=== PATIENT | female | born 1960 | race Asian ===

== ENCOUNTER 2016-05-10 13:05 | Emergency (ER) | payer OTHER ==
[~2016-05-10] VITALS: Ht 167.6 cm; Wt 72.6 kg
--- NOTE | 2016-05-10 13:40 | ED General ---
General Chief Complaint: Allergic Reaction Stated Complaint: ALLERGIC REACTION Nursing Triage Note: PT ARRIVED PER EMS, PT WAS AT [facility] PT HAVING ALLERGIC RX, MOUTH SWELLING, SOA, DIFF SWALLOWING, RASH AND ITCHING ON HAND AND FEET. PT HAS SL AND WAS GIVEN IV SOLUMEDROL,BENEDRYL AND EPPI BY JUAN ANTONIO DILLON. Nursing Sepsis Screen: No Definite Risk History of Present Illness Time Seen by Provider: 13:20 Initial Comments Evaluation for rash to palms of hands and plantar surface of feet. She noticed difficulty swallowing and swelling in her lips, he went to [facility]. She was given Solu-Medrol IV Benadryl IV and an EpiPen then transferred here via EMS. She reports her symptoms have improved. She denies difficulty breathing. She denies a causative agent that she can identify, the allergy is penicillin. No environmental or other known allergies Timing/Duration: 1-3 Hours Severity: Mild, Moderate Allergies and Home Medications Allergies Coded Allergies: Penicillins (Unverified Allergy, Unknown, 05/10/16) Home Medications Azithromycin 500 Mg Tablet #5 500 MG PO DAILY Prescribed by: JENNIFER GARNER on 05/10/16 1641 Constitutional: no symptoms reported see HPI EENTM: mouth swelling see HPI throat swelling Respiratory: no symptoms reported see HPI Cardiovascular: no symptoms reported see HPI Gastrointestinal: no symptoms reported see HPI Genitourinary: no symptoms reported see HPI : No Musculoskeletal: no symptoms reported see HPI Skin: see HPI rash (hands and feet) Psychiatric/Neurological: No Symptoms Reported See HPI Hematologic/Lymphatic: No Symptoms Reported See HPI Immunological/Allergic: no symptoms reported see HPI All Other Systems Reviewed Negative Unless Noted: Yes Past Mfbbjbv-Scarbb-Mxdbaj Hx Patient Social History Alcohol Use: Denies Use Recreational Drug Use: No Smoking Status: Never a Smoker Recent Foreign Travel: No Contact w/Someone Who Travel: No Recent Infectious Disease Expo: No Reviewed Nursing Assessment Reviewed/Agree w Nursing PMH: Yes Physical Exam Vital Signs Vital Sign - Last 12Hours 05/10/16 13:05 Temp 98.2 Pulse 111 Resp 38 B/P 134/77 Pulse Ox 96 O2 Delivery Room Air Capillary Refill : Less Than 3 Seconds General Appearance: No Apparent Distress WD/WN Eyes: Bilateral Eye Normal Inspection, Bilateral Eye Other (no Alyssa-Orbital edema), Bilateral Eye PERRL HEENT: PERRL/EOMI TMs Normal Normal ENT Inspection Pharyngeal Erythema Other ( trace angioedema) Neck: Full Range of Motion Normal Inspection Non Tender SuppleNo Lymphadenopathy (L), No Lymphadenopathy (R) Respiratory: Chest Non Tender Lungs Clear Normal Breath Sounds Cardiovascular: Regular Rate, Rhythm No Edema No Murmur Normal Peripheral Pulses Gastrointestinal: Normal Bowel Sounds Non Tender Soft Back: Normal Inspection No CVA Tenderness No Vertebral Tenderness Extremity: Normal Capillary Refill Normal Inspection Normal Range of Motion Non Tender No Calf Tenderness No Pedal Edema Neurologic/Psychiatric: Alert Oriented x3 No Motor/Sensory Deficits Normal Mood/Affect Skin: Normal Color Petechia (rash to the lower surface of hands and plantar surface of feet, mild in nature) Lymphatic: No Adenopathy Progress/Results/Core Measures Results/Orders Lab Results Laboratory Tests Test 05/10/16 15:30 Range/Units Group A Streptococcus Screen NEGATIVE NEGATIVE My Orders Orders-JENNIFER GARNER Famotidine Tablet (Pepcid Tablet) (05/10/16 13:45) Rapid Strep A Screen (05/10/16 15:01) Chest Pa/Lat (2 View) (05/10/16 15:02) Ketorolac Injection (Toradol Injection) (05/10/16 16:11) Medications Given in ED Current Medications Medications Dose Ordered Sig/Piotr Route Start Time Stop Time Status Last Admin Dose Admin Famotidine 20 mg ONCE ONCE PO 05/10/16 13:45 05/10/16 13:46 DC 05/10/16 13:30 20 MG Vital Signs/I&O Vital Sign - Last 12Hours 05/10/16 05/10/16 13:05 16:46 Temp 98.2 Pulse 111 100 Resp 38 18 B/P 134/77 Pulse Ox 96 97 O2 Delivery Room Air Blood Pressure Mean: 96 Progress Note : Time: 13:20 Progress Note Initial evaluation completed, no acute anaphylaxis at this time. Explained to the patient and her spouse that she will need to remain here for 4 hours after the EpiPen was given. Pepcid 20 mg by mouth. 1400 patient offered ice chips, no difficulty swallowing. Complaining of throat pain but no difficulty breathing. No change in rash. 1500 strep a negative, chest x-ray normal. Taking by mouth fluids 1600 patient complaining of increased throat pain, Toradol 30 mg IV. 1615 patient reports improvement in her symptoms, discharge planning discussed. Patient and her spouse verbalized understanding. Diagnostic Imaging Diagonstic Imaging: Xray Plain Films/CT/US/NM/MRI: chest Comments NAME: PETE KC MED REC#: [id number] PT STATUS: REG ER : 1960 PHYSICIAN: JENNIFER GARNER ADMIT DATE: 05/10/16/ER Draft Date of Exam:05/10/16 CHEST PA/LAT (2 VIEW) PA and lateral chest at 3:42 p.m. INDICATION: Shortness of breath. No prior studies available for comparison. FINDINGS: The heart size is within normal limits. The lungs are clear. There is no evidence for failure, pneumonia or for pleural effusion. Mediastinum is not widened. The osseous structures are intact. IMPRESSION: There is no evidence for acute cardiopulmonary abnormality. Dictated on workstation # [id number] Dict: 05/10/16 1531 Trans: 05/10/16 1538 [id number] Interpreted by: REUBEN CHAVARRIA MD Electronically signed by: Reviewed: Reviewed by Me Departure Impression Impression: Primary Impression: Allergic reaction Qualified Code: T78.40XA - Allergy, unspecified, initial encounter Additional Impression: Pharyngitis Qualified Code: J02.9 - Acute pharyngitis, unspecified Disposition: 01 HOME, SELF-CARE Condition: Stable Departure-Patient Inst. Decision time for Depature: 15:00 Referrals: [facility] (PCP/Family) Primary Care Physician Patient Instructions: Anaphylaxis (DC), Strep Throat (DC) Add. Discharge Instructions: All discharge instructions reviewed with patient and/or family. Voiced understanding. Continue to take Benadryl 25 mg orally every 8 hours. Return to emergency room for difficulty breathing, increased rash, itching, swelling of lips, eyes or tongue, or any other concerns Scripts Azithromycin 500 Mg [id number] Mg PO DAILY #5 TAB Ref 0 Prov:JENNIFER GARNER 05/10/16 JENNIFER GARNER May 10, 2016 13:40
[2016-05-10] MEDS ORDERED: FAMOTIDINE 20 MG (PEPCID) TABLET PO ONE (13:45)
--- NOTE | 2016-05-10 15:38 | Diagnostic Imaging Report ---
PA and lateral chest at 3:42 p.m. INDICATION: Shortness of breath. No prior studies available for comparison. FINDINGS: The heart size is within normal limits. The lungs are clear. There is no evidence for failure, pneumonia or for pleural effusion. Mediastinum is not widened. The osseous structures are intact. IMPRESSION: There is no evidence for an acute cardiopulmonary abnormality. Dictated by: Dictated on workstation # [id number]
[2016-05-10] MEDS ORDERED: KETOROLAC 30 MG/ML VIAL IVP STA (16:11)
[2016-05-10] MEDS ORDERED: AZIT500T5 PO (16:41)
[2016-05-10 16:46] VITALS: BP 131/84
[2016-05-11] MEDS ORDERED: AZIT500T5 PO (13:38)
[2016-05-11] MEDS ORDERED: DIPH25TA65 PO (13:38)
[2016-05-11] MEDS ORDERED: D ME PO (13:46)
[2016-05-13] MEDS ORDERED: DIPH28CR5 TOP (11:06)
[2016-05-13] MEDS ORDERED: LIDO15SO2 PO (11:06)
== END 2016-05-10 16:49 | disposition home or self-care (01) ==
LOC: ER 13:13
DX: J02.9 Acute pharyngitis, unspecified (principal); R21 Rash and other nonspecific skin eruption; T78.40XA Allergy, unspecified, initial encounter; Y92.009 Unspecified place in unspecified non-institutional (private) residence as the place of occurrence of the external cause
CPT/HCPCS: 71020; 87430; 96374

== ENCOUNTER 2016-05-11 07:58 | Inpatient (IN) | payer OTHER ==
[~2016-05-11] VITALS: Ht 165.1 cm; Wt 74.5 kg
[~2016-05-11 07:58] MED LIST: AZIT500T5 PO
--- OUTSIDE RECORDS SUMMARY | 2016-05-11 08:02 | XMS REPORT | Continuity of Care Document ---
Author Author [facility] Organization [facility] Address Unknown Phone Unavailable Care Team Providers Care Grinding Supervisor Name Role Phone [facility] Insurance Providers Payer Name Policy Number Subscriber Name Relationship Unknown Advance Directives Directive Response Recorded Date/Time Advance Directives No 05/10/16 1:05pm Resuscitation Status Full Code 05/10/16 1:05pm Chief Complaint and Reason for Visit Chief Complaint Allergic Reaction Reason for Visit Allergic reaction Pharyngitis Problems Active Problems Medical Problem Onset Date Status Allergic reaction Unknown Acute Pharyngitis Unknown Acute Medications Current Home Medications Medication Dose Units Route Directions Days/Qty Instructions Start Date Azithromycin 500 Mg 500 Mg Oral Daily 5 05/10/16 Social History Social History Problem Response Recorded Date/Time Alcohol Use Denies Use 05/10/2016 1:05pm Recreational Drug Use No 05/10/2016 1:05pm Recent Foreign Travel No 05/10/2016 1:05pm Recent Infectious Disease Exposure No 05/10/2016 1:05pm Hospitalization with Isolation Denies 05/10/2016 1:05pm Smoking Status Never a Smoker 05/10/2016 1:05pm Hospitalization with Isolation Denies 05/10/2016 1:05pm Query Response Start Date Stop Date Smoking Status Never a Smoker Hospital Discharge Instructions No hospital discharge instructions. Plan of Care Discharge Date 05/10/16 4:49pm Disposition 01 HOME, SELF-CARE Condition at Discharge Stable Instructions/Education Provided Anaphylaxis (DC) Strep Throat (DC) Prescriptions See Medication Section Referrals [facility] - Primary Care Physician Additional Instructions/Education All discharge instructions reviewed with patient and/or family. Voiced understanding. Continue to take Benadryl 25 mg orally every 8 hours. Return to emergency room for difficulty breathing, increased rash, itching, swelling of lips, eyes or tongue, or any other concerns Functional Status No functional status results. Allergies, Adverse Reactions, Alerts Allergen Type Severity Reaction Status Last Updated Penicillins ([id number]) Allergy Unknown Active 05/10/16 Immunizations No immunization records. Vital Signs Acute Vital Signs Vital Response Date/Time Temperature (Fahrenheit) 98.2 degrees F (97.6 - 99.5) 05/10/2016 1:05pm Temperature (Calculated Celsius) 36.94617 degrees C (36.4 - 37.5) 05/10/2016 1:05pm Temperature Source Temporal 05/10/2016 1:05pm Pulse Rate (adult) 100 bpm (60 - 90) 05/10/2016 4:46pm Respiratory Rate 18 bpm (12 - 24) 05/10/2016 4:46pm O2 Sat by Pulse Oximetry 97 % (88 - 100) 05/10/2016 4:46pm Blood Pressure 131/84 mm Hg 05/10/2016 4:46pm Blood Pressure Mean 96 mm Hg 05/10/2016 1:05pm Pain Numeric Pain Scale 0-No Pain 05/10/2016 1:05pm Height (Feet) 5 feet 05/10/2016 1:05pm Height (Inches) 6 inches 05/10/2016 1:05pm Height (Calculated Centimeters) 167.964359 cm 05/10/2016 1:05pm Weight (Pounds) 160 pounds 05/10/2016 1:05pm Weight (Calculated Kilograms) 72.072989 kilograms 05/10/2016 1:05pm Capillary Refill Capillary Refill Less Than 3 Seconds 05/10/2016 1:05pm Height 5 ft 6 in Weight 160 lb Body Mass Index 25.8 kg/m^2 Results Laboratory Results Test Name Result Units Flags Reference Collection Date/Time Result Date/ Time Comments Group A Streptococcus Screen NEGATIVE NEGATIVE 05/10/2016 3:30pm 04/2016 4:07pm Procedures No known history of procedures. Encounters Encounter Location Arrival/Admit Date Discharge/Depart Date Attending Provider Departed Emergency Room [facility] 05/10/16 1:13pm 05/10 4:49pm JENNIFER GARNRE Recent Diagnosis
[2016-05-11] MEDS ORDERED: NS IV 1000 ML 1,000 ML IV PRN (08:30)
[2016-05-11] MEDS ORDERED: fentaNYL INJECTION 100 MCG/2 ML AMP IVP PRN (08:30)
[2016-05-11 08:35] LABS: BASOPHILS # (AUTO) 0.1 10^3/uL (0.0-0.1); BASOPHILS % (AUTO) 0 % (0-10); EOSINOPHILS # (AUTO) 0.1 10^3/uL (0.0-0.3); EOSINOPHILS % (AUTO) 1 % (0-10); LYMPHOCYTES % (AUTO) 25 % (12-44); MEAN CORPUSCULAR HEMOGLOBIN 29 PG (25-34); MEAN CORPUSCULAR HGB CONC 34 G/DL (32-36); MEAN CORPUSCULAR VOLUME 85 FL (80-99); MEAN PLATELET VOLUME 10.1 FL (7.4-10.4); MONOCYTES # (AUTO) 1.4 X 10^3 (0.0-1.0); MONOCYTES % (AUTO) 7 % (0-12); NEUTROPHILS # (AUTO) 13.1 X 10^3 (1.8-7.8); NEUTROPHILS % (AUTO) 67 % (42-75); PLATELET COUNT 264 10^3/uL (130-400); RED BLOOD COUNT 5.47 10^6/uL (4.35-5.85); RED CELL DISTRIBUTION WIDTH 14.5 % (10.0-14.5); WHITE BLOOD COUNT 19.7 10^3/uL (4.3-11.0)
--- NOTE | 2016-05-11 08:37 | ED EENT ---
History of Present Illness General Stated Complaint: ALLERGIC REACTION Source: patient, family Exam Limitations: no limitations History of Present Illness Time seen by provider: 08:32 Initial Comments This 56-year-old white female presents with a 2 day history of severe sore throat, difficulty swallowing, and itching rash over the palms of both hands. Patient was seen at [facility] treated with epinephrine and Solu-Medrol and transferred to the emergency department where a diagnosis of pharyngitis was made and the patient was started on Benadryl on a Zithromax in. Over the last 24 hours there has been no improvement precipitating the patient's repeat presentation to the emergency department. Patient states that it is very painful to swallow and that she has sensation of swelling in her throat. The patient denies associated headache, stiff neck, respiratory distress, nausea, vomiting, diarrhea. The patient [place] this country within the last year. Due to the language difficulty and the patient's condition is somewhat difficult to establish that her immunizations are up-to-date. Allergies and Home Medications Allergies Coded Allergies: Penicillins (Unverified Allergy, Unknown, 05/10/16) Home Medications Azithromycin 500 Mg Tablet #5 500 MG PO DAILY Prescribed by: JENNIFER GARNER on 05/10/16 1641 Review of Systems Constitutional: chills fever Eyes: Denies Blurred Vision Ears: Denies Dizziness Nose: denies congestion, denies epistaxis Mouth: see HPI pain swelling Throat: see HPI pain swellingdenies neck stiffness Respiratory: coughNo short of breath Cardiovascular: No chest pain Gastrointestinal: No abdominal pain, No diarrhea, No nausea, No vomiting Musculoskeletal: No back pain Skin: rash (there is a macular papular diffuse rash over the palms of both hands measuring approximately 1/4-1/2 cm in diameter. The rash is itchy.) Neurological: No Symptoms Reported Hematologic/Lymphatic: No Symptoms Reported Immunological/Allergic: no symptoms reported Past Ofyuvgx-Utscrh-Unwhrc Hx Reviewed Nursing Assessment Reviewed/Agree w Nursing PMH: Yes Physical Exam Vital Signs Vital Sign - Last 12Hours 05/11/16 08:00 Temp 100.0 Pulse 103 Resp 20 B/P 135/103 Pulse Ox 97 O2 Delivery Room Air General Appearance: WD/WN mild distress Eyes: bilateral eye PERRL, bilateral eye normal inspection Ears: bilateral ear TM normal, bilateral ear auricle normal, bilateral ear canal normal Nose: normal inspection Mouth/Throat: pharynx swelling (there is uvular edema and an apparent viral stomatitis of the posterior oral pharynx.) other (there appears to be a fullness in the floor of the mouth on palpation. There is tenderness without apparent inflammation to the skin. There is moderate associated anterior cervical adenopathy.) Neck: non-tender supple Cardiovascular: normal peripheral pulses regular rate, rhythm Respiratory: chest non-tender lungs clear normal breath sounds Gastrointestinal: normal bowel sounds non tender soft Neurologic/Psychiatric: no motor/sensory deficits alert normal mood/affect oriented x 3 Skin: rash (the rash over the palms is as noted above.) Progress/Results/Core Measures Results/Orders Lab Results Laboratory Tests Test 05/11/16 08:20 05/11/16 08:29 05/11/16 08:38 05/11/16 09:59 Range/Units Monoscreen NEGATIVE NEGATIVE Activated Partial Thromboplast Time 26 24-35 SEC Alanine Aminotransferase (ALT/SGPT) 20 0-55 U/L Albumin 4.6 H 3.2-4.5 G/DL Alkaline Phosphatase 95 40-136 U/L Anion Gap 12 5-14 MMOL/L Aspartate Amino Transf (AST/SGOT) 13 5-34 U/L BUN/Creatinine Ratio 17 Band Neutrophils 0 % Basophils # (Auto) 0.1 0.0-0.1 10^3/uL Basophils % (Manual) 0 % Basophils (%) (Auto) 0 0-10 % Blood Morphology Comment NORMAL Blood Urea Nitrogen 13 7-18 MG/DL Calcium Level 9.7 8.5-10.1 MG/DL Carbon Dioxide Level 23 21-32 MMOL/L Chloride Level 107 98-107 MMOL/L Creatinine 0.76 0.60-1.30 MG/DL Eosinophils # (Auto) 0.1 0.0-0.3 10^3/uL Eosinophils % (Manual) 0 % Eosinophils (%) (Auto) 1 0-10 % Estimat Glomerular Filtration Rate > 60 Glucose Level 123 H 70-105 MG/DL Hematocrit 46 35-52 % Hemoglobin 15.6 11.5-16.0 G/DL INR Comment 1.0 0.8-1.4 Lymphocytes # (Auto) 5.0 H 1.0-4.0 X 10^3 Lymphocytes % (Manual) 30 % Lymphocytes (%) (Auto) 25 12-44 % Mean Corpuscular Hemoglobin 29 25-34 PG Mean Corpuscular Hemoglobin Concent 34 32-36 G/DL Mean Corpuscular Volume 85 80-99 FL Mean Platelet Volume 10.1 7.4-10.4 FL Monocytes # (Auto) 1.4 H 0.0-1.0 X 10^3 Monocytes % (Manual) 4 % Monocytes (%) (Auto) 7 0-12 % Neutrophils # (Auto) 13.1 H 1.8-7.8 X 10^3 Neutrophils % (Manual) 66 % Neutrophils (%) (Auto) 67 42-75 % Platelet Count 264 130-400 10^3/uL Potassium Level 3.9 3.6-5.0 MMOL/L Prothrombin Time 12.5 12.2-14.7 SEC Red Blood Count 5.47 4.35-5.85 10^6/uL Red Cell Distribution Width 14.5 10.0-14.5 % Sodium Level 142 135-145 MMOL/L Total Bilirubin 0.3 0.1-1.0 MG/DL Total Protein 7.5 6.4-8.2 G/DL White Blood Count 19.7 H 4.3-11.0 10^3/uL Lactic Acid Level 1.0 0.5-2.0 MMOL/L My Orders Orders-DALI PINTO MD Cbc With Automated Diff (05/11/16 08:28) Comprehensive Metabolic Panel (05/11/16 08:28) Lactic Acid Analyzer (05/11/16 08:28) Blood Culture (05/11/16 08:28) Sputum Culture (05/11/16 08:28) Ua Culture If Indicated (05/11/16 08:28) Protime With Inr (05/11/16 08:28) Partial Thromboplastin Time (05/11/16 08:28) Chest 1 View, Ap/Pa Only (05/11/16 08:28) O2 (05/11/16 08:28) Saline Lock/Iv-Start (05/11/16 08:28) Saline Lock/Iv-Start (05/11/16 08:28) Ns Iv 1000 Ml (Sodium Chloride 0.9%) (05/11/16 08:30) Vital Signs Adult Sepsis Patie Q1HR (05/11/16 08:28) Remove Rings In Anticipation O (05/11/16 08:28) Fentanyl Injection (Sublimaze Injection (05/11/16 08:30) Manual Differential (05/11/16 08:29) Ct Neck (Soft Tissue) W (05/11/16 08:38) Iohexol Injection (Omnipaque 350 Mg/Ml 1 (05/11/16 09:00) Sodium Chloride Flush (Catheter Flush Sy (05/11/16 09:00) Ns (Ivpb) (Sodium Chloride 0.9% Ivpb Bag (05/11/16 09:00) Monotest (05/11/16 09:04) Throat Culture (05/11/16 09:19) Virus Culture (05/11/16 09:27) Ceftriaxone Injection (Rocephin Injectio (05/11/16 10:00) Medications Given in ED Current Medications Medications Dose Ordered Sig/Piotr Route Start Time Stop Time Status Last Admin Dose Admin Ceftriaxone Sodium/Sodium Chloride 50 ml @ 100 mls/hr ONCE ONCE IV 05/11/16 10:00 05/11/16 10:29 05/11/16 10:06 100 MLS/HR Fentanyl Citrate 50 mcg Q1H PRN IVP 05/11/16 08:30 05/11/16 08:39 50 MCG Iohexol 75 ml ONCE ONCE IV 05/11/16 09:00 05/11/16 09:05 DC 05/11/16 09:17 75 ML Sodium Chloride 1,000 ml @ 500 mls/hr PRN PRN IV 05/11/16 08:30 05/11/16 08:39 500 MLS/HR Sodium Chloride 100 ml 100 ml ONCE ONCE IV 05/11/16 09:00 05/11/16 09:05 DC 05/11/16 09:17 80 ML Vital Signs/I&O Vital Sign - Last 12Hours 05/11/16 08:00 Temp 100.0 Pulse 103 Resp 20 B/P 135/103 Pulse Ox 97 O2 Delivery Room Air Progress Note : Time: 09:56 Progress Note Patient's laboratory evaluation showed white count of nearly 20,000. The CT with contrast of the neck demonstrated possible early abscesses in the abril- adenoidal area as well as significant frontal and ethmoid sinusitis. I'm going to give the patient 2 g of Rocephin carefully (penicillin allergy). I placed a call to Dr. Orantes for her thoughts on the patient. I anticipate that we will admit the patient on IV antibiotics for further close evaluation. Dr. Orantes was kind enough to admit the patient. A consult was placed to Dr. Hurley, ENT. Departure Communication Time/Spoke to Admitting Phy: 10:[address] Orantes Time/Spoke to Consulting Physi: 10:12 Communication/Consulting Call was placed to Dr. Hurley. Impression Impression: Primary Impression: Sinusitis Disposition: ADMITTED INPATIENT Condition: Improved Decision to Admit Reason: Admit from ER (General) Decision to Admit/Date: May 11, 2016 Time/Decision to Admit Time: 10:13 Departure-Patient Inst. Referrals: [facility] (PCP/Family) Primary Care Physician DALI PINTO MD May 11, 2016 08:37
[2016-05-11 08:39] LABS: PROTHROMBIN TIME PATIENT 12.5 SEC (12.2-14.7)
[2016-05-11 08:47] LABS: ALANINE AMINOTRANSFERASE 20 U/L (0-55); ALBUMIN 4.6 G/DL (3.2-4.5); ANION GAP 12 MMOL/L (5-14); ASPARTATE AMINO TRANSFERASE 13 U/L (5-34); BILIRUBIN,TOTAL 0.3 MG/DL (0.1-1.0); BLOOD UREA NITROGEN 13 MG/DL (7-18); BUN/CREATININE RATIO 17; CALCIUM 9.7 MG/DL (8.5-10.1); CARBON DIOXIDE 23 MMOL/L (21-32); CHLORIDE 107 MMOL/L (98-107); CREATININE SERUM 0.76 MG/DL (0.60-1.30); GFR ESTIMATED > 60; GLUCOSE 123 MG/DL (70-105); POTASSIUM 3.9 MMOL/L (3.6-5.0); SODIUM 142 MMOL/L (135-145); TOTAL PROTEIN 7.5 G/DL (6.4-8.2)
[2016-05-11 08:57] LABS: BAND NEUTROPHILS 0 %; BASOPHILS % (MANUAL) 0 %; EOSINOPHILS % (MANUAL) 0 %; LYMPHOCYTES % (MANUAL) 30 %; NEUTROPHILS % (MANUAL) 66 %
[2016-05-11] MEDS ORDERED: CATHETER FLUSH 10 ML SYR IV PRN ×2 (09:00→12:00)
[2016-05-11] MEDS ORDERED: NS 100 ML (IVPB) BAG IV ONE (09:00)
[2016-05-11] MEDS ORDERED: IOHEXOL 350 MG/ML 100 ML (OMNIPAQUE 350) VIAL IV ONE (09:00)
--- NOTE | 2016-05-11 09:05 | Diagnostic Imaging Report ---
INDICATION: Throat and tongue swelling. PA chest obtained at 8:53 a.m. and compared to 04/13/16. FINDINGS: Heart and mediastinal silhouette are normal in appearance. The lungs are clear. There is no pneumothorax or pleural fluid. IMPRESSION: Negative chest. Dictated by: Dictated on workstation # [id number]
[2016-05-11] MEDS ORDERED: cefTRIAXone INJECTION 2,000 MG in NS (IVPB) 50 ML IV ONE (10:00)
[2016-05-11 10:08] LABS: BILIRUBIN,URINE NEGATIVE (NEGATIVE); KETONES,URINE NEGATIVE (NEGATIVE); LEUKOCYTE ESTERASE ,URINE 1+ (NEGATIVE); NITRITE,URINE NEGATIVE (NEGATIVE); PH,URINE 5 (5-9); PROTEIN,URINE NEGATIVE (NEGATIVE); UROBILINOGEN,URINE NORMAL (NORMAL)
--- NOTE | 2016-05-11 10:15 | Diagnostic Imaging Report ---
PROCEDURE: CT neck soft tissue with contrast. TECHNIQUE: Multiple contiguous axial images were obtained through the neck after the administration of contrast. INDICATION: Fever. Throat swelling. 75 mL of Omnipaque 350 was administered intravenously. FINDINGS: There is an opacification of the frontal sinuses visualized portions and prominent partial opacification of the ethmoidal air cells bilaterally. Incidental subcentimeter osteomas are seen in the mid ethmoidal air cells bilaterally. The maxillary sinuses demonstrate mild mucosal thickening. There is also mucosal thickening in the nasal cavities and middle and superior turbinates obliterating the upper aspect of the nasal channels on both sides. There is also obliteration of the ostiomeatal complex bilaterally. In the nasopharynx, there is heterogenous swelling of the tiny pockets of hypodensity which may relate to a phlegmon. No sizable fluid collection is seen at this time to suggest a drainable abscess. There is swelling of the uvula with no fluid collection seen. The thyroid, the submandibular glands and the parotid glands appear unremarkable. The lung apices appear clear. The osseous structures appear grossly unremarkable. IMPRESSION: There is soft tissue swelling in the uvula and the adenoids with very tiny hypodense areas in the adenoids which may relate to phlegmon or early microabscess formation. No sizable fluid collection to suggest a drainable abscess seen at this time. There is also sinonasal mucosal thickening, as described, compatible with sinusitis. Dictated by: Dictated on workstation # [id number]
[2016-05-11] MEDS ORDERED: CEFUROXIME INJECTION 1,500 MG in NS (IVPB) 50 ML IV ONE (10:30)
[2016-05-11] MEDS ORDERED: methylPREDNISolone 125 MG (Solu-MEDROL) VIAL IVP ONE (10:30)
[2016-05-11] MEDS ORDERED: HYDROmorphone (DILAUDID) 2 MG/ML VIAL IVP ONE (11:00)
[2016-05-11 11:35] VITALS: BP 156/77
[2016-05-11] MEDS: NS IV 1000 ML 1,000 ML IV SCH (12:10)
[2016-05-11 13:30] VITALS: BP 165/96
[2016-05-11] MEDS ORDERED: AZIT500T5 PO (13:38)
[2016-05-11] MEDS ORDERED: DIPH25TA65 PO (13:38)
[2016-05-11] MEDS ORDERED: D ME PO (13:46)
--- NOTE | 2016-05-11 15:50 | ST Dysphagia Evaluation ---
Speech Evaluation-General Medical Diagnosis Questionable Abril-adenoidal Abscess, Pharyngitis, Sinitus Onset Date: May 09, 2016 Therapy Diagnosis Therapy Diagnosis: Moderate Odynophagia Precautions Precautions: Aspiration Precautions/Isolations: Standard Precautions Referral Referring Physician: Dr. Alexandra Orantes Reason for Referral: Evaluation/Treatment Clinical Bedside Swallowing Evaluation Medical History The patient's past medical history could not be found following a chart review. Limited history was provided by family members upon clinician interview. Reviewed History: Yes Speech PLF/Current-Dysphagia Prior Level of Function Prior to the onset of pharyngeal pain two days ago, the patient consumed a regular diet with thin liquids. Since the onset of the pharyngitis, the patient stated, "I have barely ate anything." Subjective The patient was recently admitted to [facility] with a diagnosis of a questionable abril-adenoidal abscess, pharyngitis, and sinuitis. The patient reports significant odynophagia upon swallowing saliva, thin liquid, and mucus. The patient is agreeable to participate in the dysphagia evaluation at this time. CT Neck: 05/11/16: There is soft tissue swelling in the uvula and the adenoids with very tiny hypodense areas in the adenoids which may relate to phlegmon or early microabscess formation. No sizable fluid collection to suggest a drainable abscess seen at this time. There is also sinonasal mucosal thickening, as described,compatible with sinusitis. Cognitive Status Patient Orientation: Person, Place Oral Motor Skills Dentition: Natural Current Food Consistancy: Regular, Thin Liquids Ability to Follow Directions: Good Oral Expression Ability: No Impairment Mild, intermittent language barrier present; family members present for evaluation. Voice Voice Pitch: Mildly Low Voice Loudness: Moderately Soft/Quiet (Hyponasality noted.) Face Facial Symmetry: Symmetrical Oral-Facial Assessment Oral-Facial Dentition: Normal Labial Seal Description: Normal Smile: Normal Puff Cheeks: Normal Lingual Protrusion: Normal Lingual ROM: Normal Lingual Strength: Normal Pharynx Velopharyngeal Move.: Normal (Posterior pharyngeal wall edema was noted.) Volitional Dry Swallow: Yes (Significant odynophagia noted upon a dry swallow.) Voluntary Cough: Yes Can Clear Throat Volitionally: Yes Dysphagia Evaluation Consistencies Presented: Thin Liquid, Pureed Solid consistencies were deferred secondary to discomfort. 1. No oral impairments were noted throughout the evaluation. The patient did report discomfort near the posterior oral cavity upon swallowing. 1. No pharyngeal impairments were noted. The patient did report odynophagia upon swallowing thin liquids and puree. 1. No signs/symptoms of aspiration were demonstrated with teaspoon size sips of thin liquid or puree consistencies. The patient reported moderate to severe odynophagia upon swallowing (visible facial grimacing). To note: the patient does clear throat at baseline (prior to bolus administration). Per patient, she is attempting to clear mucus from the pharynx. Dietary Recommendations: Pureed (Upgrade per patient's tolerance/comfort.) Liquid Recommendations: Thin Swallowing Precautions: Decreased Bolus 1/4 Tsp, Liquids from Spoon, No Straw, Small Bites and Sips, Sitting 90 Degrees 30 Post Intake Dysphagia Evaluation Summary Moderate Odynophagia Speech-Plan Treatment Plan Speech Therapy Treatment Plan: Discontinue ST Evaluation, only. Rehab Potential: Good Safety Risks/Education Teaching Recipient: Patient, Family, Significant Other Teaching Methods: Discussion Response to Teaching: Verbalize Understanding Education Topics Provided: Results, Recommendations, Signs/symptoms of aspiration, Swallowing Strategies Time Speech Therapy Time In: 15:20 Speech Therapy Time Out: 15:40 Total Billed Time: 20 Billed Treatment Time 1, WANDA RODRIGUEZ May 11, 2016 15:50
[2016-05-11 16:25] VITALS: BP 130/79
[2016-05-11] MEDS: methylPREDNISolone 125 MG (Solu-MEDROL) VIAL IV SCH (17:02)
[2016-05-11 19:30] VITALS: BP 142/69
--- NOTE | 2016-05-11 20:08 | Progress Note-Standard ---
Standard Progress Note Progress Notes/Assess & Plan Progress/Assessment & Plan ENT-Jenn Patient Seen and evaluated Oral cavity-palataal lesions along with severe pain in throat and rash on hands and feet Unclear on vaccination history-new to area in past two weeks originallly from [facility] need to consider atypical infectious disease such as hand foot and mouth disease consider this to be more infectious than allergic reaction-if viarl may have to run its course sinus disease present but hktubkg-ydfznauefnmz-dlo does have a distant history of sinus surgery back in [facility] will follow-up in -rinku chowdhury slow resolution of symptoms RANDALL WEISS MD May 11, 2016 20:08
[2016-05-12] VITALS: BP 130/64
[2016-05-12] MEDS: methylPREDNISolone 125 MG (Solu-MEDROL) VIAL IV SCH ×2 (00:01→05:39)
[2016-05-12] MEDS: morphine INJ 4 MG/ML 1 ML (VIAL/SYRINGE) IVP PRN ×6 (00:01→20:44)
[2016-05-12 04:00] VITALS: BP 144/77
[2016-05-12 05:59] LABS: BASOPHILS % (AUTO) 0 % (0-10); EOSINOPHILS % (AUTO) 0 % (0-10); LYMPHOCYTES # (AUTO) 2.4 X 10^3 (1.0-4.0); LYMPHOCYTES % (AUTO) 17 % (12-44); MEAN CORPUSCULAR HEMOGLOBIN 28 PG (25-34); MEAN CORPUSCULAR HGB CONC 33 G/DL (32-36); MEAN CORPUSCULAR VOLUME 86 FL (80-99); MEAN PLATELET VOLUME 10.3 FL (7.4-10.4); MONOCYTES # (AUTO) 0.3 X 10^3 (0.0-1.0); MONOCYTES % (AUTO) 2 % (0-12); NEUTROPHILS # (AUTO) 11.7 X 10^3 (1.8-7.8); NEUTROPHILS % (AUTO) 81 % (42-75); PLATELET COUNT 245 10^3/uL (130-400); RED BLOOD COUNT 5.01 10^6/uL (4.35-5.85); RED CELL DISTRIBUTION WIDTH 14.7 % (10.0-14.5); WHITE BLOOD COUNT 14.5 10^3/uL (4.3-11.0)
[2016-05-12 06:28] LABS: ALANINE AMINOTRANSFERASE 18 U/L (0-55); ALBUMIN 4.1 G/DL (3.2-4.5); ANION GAP 12 MMOL/L (5-14); ASPARTATE AMINO TRANSFERASE 13 U/L (5-34); BILIRUBIN,TOTAL 0.3 MG/DL (0.1-1.0); BLOOD UREA NITROGEN 15 MG/DL (7-18); BUN/CREATININE RATIO 23; CALCIUM 9.3 MG/DL (8.5-10.1); CARBON DIOXIDE 22 MMOL/L (21-32); CHLORIDE 107 MMOL/L (98-107); CREATININE SERUM 0.65 MG/DL (0.60-1.30); GFR ESTIMATED > 60; GLUCOSE 142 MG/DL (70-105); POTASSIUM 3.9 MMOL/L (3.6-5.0); SODIUM 141 MMOL/L (135-145)
--- NOTE | 2016-05-12 06:31 | Progress Note-Standard ---
Standard Progress Note Progress Notes/Assess & Plan Progress/Assessment & Plan ENT-Mei Patient Seen and evaluated Oral cavity-palataal lesions along with severe pain in throat and rash on hands and feet Unclear on vaccination history-new to area in past two weeks originallly from [facility] need to consider atypical infectious disease such as hand foot and mouth disease consider this to be more infectious than allergic reaction-if viarl may have to run its course sinus disease present but wgcscrk-afenefrtckdp-lvh does have a distant history of sinus surgery back in [facility] will follow-up in am-rinku chowdhury slow resolution of symptoms ENT-Mei-3/4 symptoms the same still has the rash on hands and feet-ulcers on soft palate minimal swelling seen of uvula-good airway to me-looks like hand foot and mouth disease or potentially like disease will treat the ulcers ysmpotmatically and g et some benadryl cream for the hands and feet has to be able to drink bedfore discharged wbc-14.5 this am which is improved culture pending RANDALL WEISS MD May 12, 2016 6:31 am
[2016-05-12] MEDS: LIDOCAINE 2% VISCOUS 15 ML UDC PO PRN ×4 (08:17→16:59)
[2016-05-12] MEDS: cefTRIAXone 1 GM/NS 50 ML IVPB IV SCH ×2 (08:17)
[2016-05-12] MEDS: NS IV 1000 ML 1,000 ML IV SCH (08:17)
[2016-05-12] MEDS: diphenhydrAMINE 2% 30 GM CR (ALLERGY CREAM) TOP PRN ×2 (08:17→20:45)
[2016-05-12 08:20] VITALS: BP 133/60
[2016-05-12 12:10] VITALS: BP 140/67
[2016-05-12] MEDS: diphenhydrAMINE 50 MG/ML INJ (BENADRYL) IVP PRN (14:58)
[2016-05-12 16:00] VITALS: BP 146/72
--- NOTE | 2016-05-12 19:55 | History & Physicial (CHS) ---
HPI History of Present Illness: 56 yo F patient sent from [facility] walk in clinic with throat swelling and pain. She was treated at the clinic for allergic reaction. Patient has not known new exposures and states that she has never had similar reaction in the past. She is also having hand and foot pain with rash. Symptoms have not improved at all when she arrived at the ER. She recently moved to the area from [facility]. She is living with family and her grandchildren. She states that they have had runny noses for the last few days. She denies fever or chills. + cough. No N/V Source: patient, RN/MD Exam Limitations: no limitations Date seen by provider: May 12, 2016 Attending Physician Rashaun Orantes MD [place] [facility] [place] Date of Admission May 11, 2016 at 10:44 Home Medications Home Medications Reviewed patient Home Medication Reconciliation Form Allergies Coded Allergies: Penicillins (Verified Allergy, Unknown, 05/11/16) NTD-Hsvyvv-Ryfftn Hx Patient Social History Alcohol Use: Denies Use Recreational Drug Use: No Smoking Status: Current Everyday Smoker Type Used: Cigarettes 2nd Hand Smoke Exposure: No Recent Foreign Travel: Yes (HERE VISITING FROM [facility]) Contact w/other who traveled: Yes Recent Hopitalizations: Yes (WENT TO ER YESTERDAY) Recent Infectious Disease Expo: No Physical Abuse Screen: No Sexual Abuse: No Immunizations Up To Date Date of Influenza Vaccine: Mar 11, 2016 Family Medical History Family History: Cardiovascular disease 19 FATHER 19 MOTHER Diabetes mellitus 19 FATHER 19 MOTHER Hypertension 19 FATHER 19 MOTHER Kidney disease 19 FATHER Review of Systems ([facility]) Constitutional: no symptoms reportedNo chills, No fever, malaise EENTM: hoarseness mouth pain mouth swelling other (Unable to tolerate solids) throat pain throat swelling Respiratory: coughNo dyspnea on exertion, No short of breath Cardiovascular: no symptoms reportedNo chest pain, No palpitations Gastrointestinal: no symptoms reportedNo abdominal pain, No constipation, No diarrhea, No nausea, No vomiting Genitourinary: no symptoms reportedNo dysuria, No frequency, No hematuria : No Musculoskeletal: other (Hand and Foot pain and itching) Skin: rash (hands and feet) Psychiatric/Neurological: No Symptoms ReportedDenies Headache, Denies Numbness , Denies Paresthesia, Denies Weakness Reviewed Test Results Reviewed Test Results Lab Laboratory Tests Test 05/12/16 05:35 Range/Units Alanine Aminotransferase (ALT/SGPT) 18 0-55 U/L Albumin 4.1 3.2-4.5 G/DL Alkaline Phosphatase 83 40-136 U/L Anion Gap 12 5-14 MMOL/L Aspartate Amino Transf (AST/SGOT) 13 5-34 U/L BUN/Creatinine Ratio 23 Basophils # (Auto) 0.0 0.0-0.1 10^3/uL Basophils (%) (Auto) 0 0-10 % Blood Urea Nitrogen 15 7-18 MG/DL Calcium Level 9.3 8.5-10.1 MG/DL Carbon Dioxide Level 22 21-32 MMOL/L Chloride Level 107 98-107 MMOL/L Creatinine 0.65 0.60-1.30 MG/DL Eosinophils # (Auto) 0.0 0.0-0.3 10^3/uL Eosinophils (%) (Auto) 0 0-10 % Estimat Glomerular Filtration Rate > 60 Glucose Level 142 H 70-105 MG/DL Hematocrit 43 35-52 % Hemoglobin 14.2 11.5-16.0 G/DL Lymphocytes # (Auto) 2.4 1.0-4.0 X 10^3 Lymphocytes (%) (Auto) 17 12-44 % Mean Corpuscular Hemoglobin 28 25-34 PG Mean Corpuscular Hemoglobin Concent 33 32-36 G/DL Mean Corpuscular Volume 86 80-99 FL Mean Platelet Volume 10.3 7.4-10.4 FL Monocytes # (Auto) 0.3 0.0-1.0 X 10^3 Monocytes (%) (Auto) 2 0-12 % Neutrophils # (Auto) 11.7 H 1.8-7.8 X 10^3 Neutrophils (%) (Auto) 81 H 42-75 % Platelet Count 245 130-400 10^3/uL Potassium Level 3.9 3.6-5.0 MMOL/L Red Blood Count 5.01 4.35-5.85 10^6/uL Red Cell Distribution Width 14.7 H 10.0-14.5 % Sodium Level 141 135-145 MMOL/L Total Bilirubin 0.3 0.1-1.0 MG/DL Total Protein 7.0 6.4-8.2 G/DL White Blood Count 14.5 H 4.3-11.0 10^3/uL Radiology Date of Exam: 05/11/16 CT NECK (SOFT TISSUE) W PROCEDURE: CT neck soft tissue with contrast. TECHNIQUE: Multiple contiguous axial images were obtained through the neck after the administration of contrast. INDICATION: Fever. Throat swelling. 75 mL of Omnipaque 350 was administered intravenously. FINDINGS: There is an opacification of the frontal sinuses visualized portions and prominent partial opacification of the ethmoidal air cells bilaterally. Incidental subcentimeter osteomas are seen in the mid ethmoidal air cells bilaterally. The maxillary sinuses demonstrate mild mucosal thickening. There is also mucosal thickening in the nasal cavities and middle and superior turbinates obliterating the upper aspect of the nasal channels on both sides. There is also obliteration of the ostiomeatal complex bilaterally. In the nasopharynx, there is heterogenous swelling of the tiny pockets of hypodensity which may relate to a phlegmon. No sizable fluid collection is seen at this time to suggest a drainable abscess. There is swelling of the uvula with no fluid collection seen. The thyroid, the submandibular glands and the parotid glands appear unremarkable. The lung apices appear clear. The osseous structures appear grossly unremarkable. IMPRESSION: There is soft tissue swelling in the uvula and the adenoids with very tiny hypodense areas in the adenoids which may relate to phlegmon or early microabscess formation. No sizable fluid collection to suggest a drainable abscess seen at this time. There is also sinonasal mucosal thickening, as described, compatible with sinusitis. Physical Exam-([facility]) Physical Exam Vital Signs VS - Last 72 Hours, by Label 05/11/16 05/11/16 05/11/16 05/11/16 08:00 11:00 11:27 11:35 Temp 100.0 98.1 100.0 Pulse 103 94 97 Resp 20 16 18 B/P 135/103 156/77 Pulse Ox 97 90 96 98 O2 Delivery Room Air Nasal Cannula Nasal Cannula O2 Flow Rate 2 2 2.00 05/11/16 05/11/16 05/11/16 05/11/16 11:35 13:30 16:25 19:30 Temp 99.9 98.7 99.0 Pulse 88 91 88 Resp 22 20 18 B/P 165/96 130/79 142/69 Pulse Ox 98 97 96 O2 Delivery Nasal Cannula Nasal Cannula Nasal Cannula Nasal Cannula O2 Flow Rate 2.00 2.00 2.00 2.00 05/11/16 05/12/16 05/12/16 05/12/16 21:00 00:00 04:00 08:16 Temp 98.0 97.7 Pulse 92 83 Resp B/P 130/64 144/77 Pulse Ox 94 93 O2 Delivery Room Air Nasal Cannula Nasal Cannula Nasal Cannula O2 Flow Rate 2.00 2.00 2.00 05/12/16 05/12/16 05/12/16 05/12/16 08:20 12:10 13:25 16:00 Temp 98.1 97.7 98.2 Pulse 84 78 70 Resp 18 B/P 133/60 140/67 146/72 Pulse Ox 93 93 98 O2 Delivery Nasal Cannula Room Air Nasal Cannula O2 Flow Rate 2.00 2.00 2.00 Capillary Refill : Less Than 3 Seconds General Appearance: WD/WN no apparent distress HEENT: PERRL/EOMI pharyngeal erythema (with opens sores in mouth and on lips) Neck: non-tender full range of motion supple normal inspection Respiratory: chest non-tender lungs clear normal breath sounds no respiratory distress no accessory muscle use Cardiovascular: regular rate, rhythm no edema no gallop no JVD no murmur Gastrointestinal: normal bowel sounds non tender soft no organomegaly no pulsatile mass Extremities: normal range of motion non-tender no pedal edema no calf tenderness other (Mild swelling present on hands and feet equal bilaterally) 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 no motor/sensory deficits alert normal mood/affect oriented x 3 Skin: other (erythematous macular rash presenton palms and soles of feet) Lymphatic: no adenopathy Assessment/Plan Assessment/Plan Plan 56 yo F that presented with pain and swelling present in her mouth Mouth Pain and Swelling - Most likely viral in nature, Hand Foot and Mouth Disease - ENT consulted, appreciate recommendation - Start Magic Mouth Wash - Continue Rocephin D2 - Ok to continue benedryl for itching Erythematous Macular Rash on Hand and Feet - See #1 Respiratory Distress: Likely from problem #1, stable this AM Sinusitis - Most likely Chronic, patient has h/o sinus surgery Elevated Glucose - A1c pending FEN: Soft diet, advance as tolerated DVT PPX: SCDs Dispo: still having poor PO intake, will continue admission, likely D/c home tomorrow Diagnosis/Problems: Clinical Quality Measures DVT/VTE Risk/Contraindication: Risk Factor Score Per Nursin RFS Level Per Nursing on Admit: 2=Moderate Copy Copies To 1: RASHAUN ORANTES MD, HOLLY R MD May 12, 2016 19:55
[2016-05-12 20:32] VITALS: BP 130/62
[2016-05-13] VITALS: BP 136/67
[2016-05-13] MEDS: LIDOCAINE 2% VISCOUS 15 ML UDC PO PRN ×3 (00:31→09:02)
[2016-05-13] MEDS: diphenhydrAMINE 50 MG/ML INJ (BENADRYL) IVP PRN ×2 (00:31→08:58)
[2016-05-13] MEDS: NS IV 1000 ML 1,000 ML IV SCH ×2 (04:00→04:50)
[2016-05-13 06:16] LABS: BASOPHILS % (AUTO) 0 % (0-10); EOSINOPHILS % (AUTO) 0 % (0-10); LYMPHOCYTES # (AUTO) 4.9 X 10^3 (1.0-4.0); LYMPHOCYTES % (AUTO) 33 % (12-44); MEAN CORPUSCULAR HEMOGLOBIN 28 PG (25-34); MEAN CORPUSCULAR HGB CONC 32 G/DL (32-36); MEAN CORPUSCULAR VOLUME 87 FL (80-99); MEAN PLATELET VOLUME 10.3 FL (7.4-10.4); MONOCYTES # (AUTO) 0.8 X 10^3 (0.0-1.0); MONOCYTES % (AUTO) 5 % (0-12); NEUTROPHILS # (AUTO) 9.1 X 10^3 (1.8-7.8); NEUTROPHILS % (AUTO) 61 % (42-75); PLATELET COUNT 233 10^3/uL (130-400); RED BLOOD COUNT 4.92 10^6/uL (4.35-5.85); RED CELL DISTRIBUTION WIDTH 14.9 % (10.0-14.5); WHITE BLOOD COUNT 14.8 10^3/uL (4.3-11.0)
--- NOTE | 2016-05-13 06:58 | Progress Note-Standard ---
Standard Progress Note Progress Notes/Assess & Plan Progress/Assessment & Plan ENT-Mei Patient Seen and evaluated Oral cavity-palataal lesions along with severe pain in throat and rash on hands and feet Unclear on vaccination history-new to area in past two weeks originallly from [facility] need to consider atypical infectious disease such as hand foot and mouth disease consider this to be more infectious than allergic reaction-if viarl may have to run its course sinus disease present but etnrfqr-fxmwtsnwuakv-eyn does have a distant history of sinus surgery back in [facility] will follow-up in am-rinku chowdhury slow resolution of symptoms ENTIona-3/4 symptoms the same still has the rash on hands and feet-ulcers on soft palate minimal swelling seen of uvula-good airway to me-looks like hand foot and mouth disease or potentially like disease will treat the ulcers ysmpotmatically and g et some benadryl cream for the hands and feet has to be able to drink bedfore discharged wbc-14.5 this am which is improved culture pending ENT-Mei Able to eart and mane hernandez now Still with sign itching feet and ahnds -initially benadryl cream helped but now not so much Oral caivty-still sore-but improving slowly viscous xylocaine helps would be ok for me to send ismael as long as drinking and eating-will BE up to her primary care I wrote prescriptions for the viscous xylocaine and a pred taper-other meds per her primary care no foloow-up needed with me-if doesnt resolve then happy to see t hem back Final Diagnosis Hand Foot and Mouth Disease RANDALL WEISS MD May 13, 2016 6:58 am
[2016-05-13] MEDS ORDERED: predniSONE 20 MG TAB PO SCH (07:00)
[2016-05-13 08:10] VITALS: BP 153/78
[2016-05-13] MEDS: morphine INJ 4 MG/ML 1 ML (VIAL/SYRINGE) IVP PRN (08:58)
[2016-05-13] MEDS: cefTRIAXone 1 GM/NS 50 ML IVPB IV SCH ×2 (08:58)
[2016-05-13] MEDS: diphenhydrAMINE 2% 30 GM CR (ALLERGY CREAM) TOP PRN (09:05)
[2016-05-13] MEDS ORDERED: LIDO15SO2 PO (11:06)
[2016-05-13] MEDS ORDERED: DIPH28CR5 TOP (11:06)
--- NOTE | 2016-05-13 11:09 | Discharge Instructions ---
Discharge [facility] Discharge Medications New, Converted or Re-Newed RX: RX on Chart New Medications: Diphenhydramine HCl/Zinc Acet (Itch Relief Cream) 28 Gm Cream..g. 0 GM TOP TID PRN ITCHING Days 14 TUBE Lidocaine HCl (Lidocaine HCl Viscous) 15 Ml Solution 5 ML PO Q2HR PRN PAIN Days 14 EA Continued Medications: Diphenhydramine HCl (Benadryl Allergy) 25 Mg Tablet 50 MG PO Q6H PRN ALLERGIC REACTION TAB Patient Instructions Goal/Follow Up Appt: Encouraged patient to followup with her PCP when she gets back home, she is visiting for only 5-7 more days Patient Instructions: - It is very important that you stay well hydrated - Eat bland soft foods until your mouth heals - Make sure to have very good hand hygiene as you can spread this virus through touching and saliva Return to The Hospital For: - Unable to tolerate fluids - Troubles breathing or respiratory distress - Chest pain Activity & Diet Discharge Diet: Soft Diet Activity as Tolerated: Yes Orders-Post D/C & Referrals Pneu Vac Indicated: Yes RASHAUN PUGA MD May 13, 2016 11:09
--- NOTE | 2016-05-13 11:16 | Discharge Summary ---
Diagnosis/Chief Complaint Date of Admission May 11, 2016 at 10:44 Date of Discharge 05/13/16 Admission Diagnosis Admission Diagnosis Respiratory distress Hand foot and mouth disease Acute pain New Diagnosis of DM Discharge Diagnosis See Above Chief Complaint/HPI Chief Complaint/HPI 56 yo F patient sent from [facility] walk in clinic with throat swelling and pain. She was treated at the clinic for allergic reaction. Patient has not known new exposures and states that she has never had similar reaction in the past. She is also having hand and foot pain with rash. Symptoms have not improved at all when she arrived at the ER. She recently moved to the area from [place]. She is living with family and her grandchildren. She states that they have had runny noses for the last few days. She denies fever or chills. + cough. No N/V Discharge Summary-Simple/Stand Procedures CT Scan: Chronic sinusitis and inflammation in the area of the adenoids Consultations ENT: Dr Hurley Discharge Physical Examination Allergies: Coded Allergies: Penicillins (Verified Allergy, Unknown, 05/11/16) Vitals & I&Os Vital Sign - Last 12Hours Date Time Temp Pulse Resp B/P Pulse Ox O2 Delivery O2 Flow Rate FiO2 05/13/16 09:00 Room Air 05/13/16 08:10 99.6 83 18 153/78 95 2.00 Intake and Output 05/13/16 00:00 Intake Total 550 ml Output Total 500 ml Balance 50 ml General Appearance: Alert, Oriented X3, Cooperative, No Acute Distress HEENT: Atraumatic, PERRLA, Other (erythematous sores present diffusely in oral cavity) Respiratory: Clear to Auscultation, Normal Air Movement Cardiovascular: Regular Rate, Normal S1, Normal S2, No Murmurs Abdominal: Normal Bowel Sounds, Soft, No Tenderness, No Hepatosplenomegaly, No Masses Extremities: No Clubbing, No Cyanosis, No Edema, No Tenderness/Swelling Skin: Other (improving erythematous macular rashes on palms and soles, no signs of secondary infection) Neuro: Normal Gait, Normal Speech, Strength at 5/5 X4 Ext, Normal Tone, Sensation Intact, Cranial Nerves 3-12 NL Psych/Mental Status: Mental Status NL, Mood NL Hospital Course See final discharge diagnosis. Labs A1c 6.5 Radiology Reviewed Date of Exam: 05/11/16 CT NECK (SOFT TISSUE) W PROCEDURE: CT neck soft tissue with contrast. TECHNIQUE: Multiple contiguous axial images were obtained through the neck after the administration of contrast. INDICATION: Fever. Throat swelling. 75 mL of Omnipaque 350 was administered intravenously. FINDINGS: There is an opacification of the frontal sinuses visualized portions and prominent partial opacification of the ethmoidal air cells bilaterally. Incidental subcentimeter osteomas are seen in the mid ethmoidal air cells bilaterally. The maxillary sinuses demonstrate mild mucosal thickening. There is also mucosal thickening in the nasal cavities and middle and superior turbinates obliterating the upper aspect of the nasal channels on both sides. There is also obliteration of the ostiomeatal complex bilaterally. In the nasopharynx, there is heterogenous swelling of the tiny pockets of hypodensity which may relate to a phlegmon. No sizable fluid collection is seen at this time to suggest a drainable abscess. There is swelling of the uvula with no fluid collection seen. The thyroid, the submandibular glands and the parotid glands appear unremarkable. The lung apices appear clear. The osseous structures appear grossly unremarkable. IMPRESSION: There is soft tissue swelling in the uvula and the adenoids with very tiny hypodense areas in the adenoids which may relate to phlegmon or early microabscess formation. No sizable fluid collection to suggest a drainable abscess seen at this time. There is also sinonasal mucosal thickening, as described, compatible with sinusitis. Discussion & Recommendations 56 yo F that presented from [facility] care with respiratory distress and swelling in mouth Respiratory distress: Resolved after first day. On RA comfortable on day of discharge Hand, Foot and Mouth Disease: Seen by ENT for abnormal CT scan. Symptomatic Management. Sent home with oral topical Xilocaine for mouth pain and benedryl cream. Discussed precautions for home in order to prevent spreading the virus New Diagnosed DM: A1c 6.5. Patient has never had diagnosis for DM. Discussed the importance of notifying her PCP when she gets back home to [place]. Discussed diet and exercise Discharge Condition at discharge Stable Instructions to patient/family Please see electonic discharge instructions given to patient. Discharge Medications Reviewed and agree with Discharge Medication list on patient's Discharge Instruction sheet Clinical Quality Measures DVT/VTE Risk/Contraindication: Risk Factor Score Per Nursin RFS Level Per Nursing on Admit: 2=Moderate RASHAUN PUGA MD May 13, 2016 11:16
[2016-05-13 12:10] VITALS: BP 153/78
== END 2016-05-13 12:10 | disposition home or self-care (01) | DRG 866 ==
LOC: EDUNIT# 07:58 → ER 07:59 → 4TH 10:44
PROVIDERS: ADMIT Family Medicine; ATTEND Family Medicine
DX: B08.4 Enteroviral vesicular stomatitis with exanthem (principal); R06.00 Dyspnea, unspecified; E11.9 Type 2 diabetes mellitus without complications; J32.1 Chronic frontal sinusitis; J32.2 Chronic ethmoidal sinusitis
CPT/HCPCS: 36415; 70491; 71010; 80053; 81000; 83036; 83605; 85007; 85025; 85027; 85610; 85730; 86308; 87040; 87088; 87252; 96361; 96365; 96375

== ENCOUNTER 2016-05-14 23:56 | Emergency (ER) | payer OTHER ==
[~2016-05-14] VITALS: Ht 165.1 cm; Wt 81.6 kg
[~2016-05-14 23:56] MED LIST changes: +D ME PO; +DIPH25TA65 PO; +DIPH28CR5 TOP; +LIDO15SO2 PO
[2016-05-15] MEDS ORDERED: fentaNYL INJECTION 100 MCG/2 ML AMP IVP STA ×2 (00:09→01:05)
[2016-05-15] MEDS ORDERED: methylPREDNISolone 125 MG (Solu-MEDROL) VIAL IVP ONE (00:15)
[2016-05-15] MEDS ORDERED: diphenhydrAMINE 50 MG/ML INJ (BENADRYL) IVP ONE (00:15)
[2016-05-15] MEDS ORDERED: FAMOTIDINE 20MG/2ML IV (PEPCID) IVP ONE (00:15)
[2016-05-15 00:19] LABS: BASOPHILS % (AUTO) 0 % (0-10); EOSINOPHILS # (AUTO) 0.1 10^3/uL (0.0-0.3); EOSINOPHILS % (AUTO) 1 % (0-10); LYMPHOCYTES # (AUTO) 4.1 X 10^3 (1.0-4.0); LYMPHOCYTES % (AUTO) 39 % (12-44); MEAN CORPUSCULAR HEMOGLOBIN 28 PG (25-34); MEAN CORPUSCULAR HGB CONC 35 G/DL (32-36); MEAN CORPUSCULAR VOLUME 82 FL (80-99); MEAN PLATELET VOLUME 9.9 FL (7.4-10.4); MONOCYTES # (AUTO) 0.9 X 10^3 (0.0-1.0); MONOCYTES % (AUTO) 8 % (0-12); NEUTROPHILS # (AUTO) 5.5 X 10^3 (1.8-7.8); NEUTROPHILS % (AUTO) 52 % (42-75); PLATELET COUNT 280 10^3/uL (130-400); RED BLOOD COUNT 5.56 10^6/uL (4.35-5.85); RED CELL DISTRIBUTION WIDTH 13.8 % (10.0-14.5); WHITE BLOOD COUNT 10.5 10^3/uL (4.3-11.0)
[2016-05-15 00:35] LABS: ALANINE AMINOTRANSFERASE 21 U/L (0-55); ALBUMIN 4.2 G/DL (3.2-4.5); ANION GAP 14 MMOL/L (5-14); ASPARTATE AMINO TRANSFERASE 13 U/L (5-34); BILIRUBIN,TOTAL 0.3 MG/DL (0.1-1.0); BLOOD UREA NITROGEN 16 MG/DL (7-18); BUN/CREATININE RATIO 24; CALCIUM 9.8 MG/DL (8.5-10.1); CARBON DIOXIDE 20 MMOL/L (21-32); CHLORIDE 104 MMOL/L (98-107); CREATININE SERUM 0.68 MG/DL (0.60-1.30); GFR ESTIMATED > 60; GLUCOSE 86 MG/DL (70-105); SODIUM 138 MMOL/L (135-145); TOTAL PROTEIN 7.3 G/DL (6.4-8.2); hs C REACTIVE PROTEIN 2.31 MG/DL (0.00-0.50)
[2016-05-15 00:40] LABS: ERYTHROCYTE SEDIMENTATION RATE 5 MM/HR (0-30)
--- NOTE | 2016-05-15 01:12 | ED General ---
General Chief Complaint: Allergic Reaction Stated Complaint: POSS ALLERGIC RXN Nursing Triage Note: PT TO ED 6 W/ C/O REDNESS ET ITCHING TO BILAT FEET ET HANDS. PT ET REPORT WERE SEEN IN THIS ED W/IN THE LAST WEEK ET TOLD SHE HAS A "VIRUS" Nursing Sepsis Screen: No Definite Risk Source of Information: Patient, Spouse History of Present Illness Time Seen by Provider: 00:02 Initial Comments PT HAS HAD REDNESS, ITCHING, BURNING AND PAIN TO PALMS AND SOLES, ALONG WITH SORES IN MOUTH FOR 1 WEEK SEEN IN ER 05/10, AND AGAIN 05/11 AND THEN ADMITTED FOR THIS PROBLEM. SEEN BY DR. WEISS, ENT WHILE IN HOSPITAL PT WAS DX WITH HAND, FOOT AND MOUTH DISEASE AND SENT HOME WITH RX'S FOR PREDNISONE TAPER, VISCOUS LIDOCAINE AND OTC ANTIHISTAMINE. WAS SUPPOSED TO HAVE MADE FOLLOW UP APPOINTMENT WITH [facility], BUT HAVE NOT DONE THAT YET. MOUTH PAIN HAS GOTTEN BETTER, AND IS EATING AND DRINKING OK NOW PAIN /BURNING AND ITCHING IN FEET AND HANDS HAS PERSISTED, AND TODAY IS HAVING DIFFICULTY WALKING DUE TO FEET PAIN NO FEVER NO COUGH OR DIFFICULTY BREATHING HAS SOME SWELLING TO HANDS AND FEET. SWELLING TO MOUTH/THROAT HAS IMPROVED. HAS NOT TAKEN ANYTHING FOR PAIN WAS GIVEN RX 10 DAYS AGO FOR ESGIC FOR CHRONIC HEADACHES. NO OTHER NEW MEDICATIONS PRIOR TO ONSET, AND HAS NOT TAKEN ANY OF THAT MEDICATION RECENTLY NO KNOWN SICK CONTACTS, BUT JUST TRAVELED HERE 2 WEEKS AGO FROM [facility] HERE VISITING FROM [facility] FOR THE LAST COUPLE OF WEEKS Allergies and Home Medications Allergies Coded Allergies: Penicillins (Verified Allergy, Unknown, 05/11/16) Home Medications Diphenhydramine HCl 25 Mg Tablet 50 MG PO Q6H PRN PRN ALLERGIC REACTION ( Reported) Diphenhydramine HCl/Zinc Acet 28 Gm Cream..g. 14Days 0 GM TOP TID PRN PRN ITCHING Prescribed by: RASHAUN PUGA on 05/13/16 1106 Hydrocodone/Acetaminophen 1 Each Tablet #20 1-2 EACH PO Q4H Prescribed by: CARLOS RAMIREZ on 05/15/16 0119 Lidocaine HCl 15 Ml Solution 14Days 5 ML PO Q2HR PRN PRN PAIN Prescribed by: RASHAUN PUGA on 05/13/16 1106 Constitutional: no symptoms reportedNo fever EENTM: mouth pain see HPINo nose congestion Respiratory: no symptoms reported Cardiovascular: no symptoms reported Gastrointestinal: no symptoms reported Genitourinary: no symptoms reported Musculoskeletal: see HPI Skin: see HPI Psychiatric/Neurological: No Symptoms Reported Hematologic/Lymphatic: No Symptoms Reported Immunological/Allergic: no symptoms reported Past Wvmstjd-Chtsik-Frkpzj Hx Patient Social History Alcohol Use: Denies Use Recreational Drug Use: No Smoking Status: Current Everyday Smoker (1 PPD) Type Used: Cigarettes 2nd Hand Smoke Exposure: No Recent Foreign Travel: No Contact w/Someone Who Travel: No Recent Infectious Disease Expo: No Recent Hopitalizations: Yes (ADMITTED 05/11-05/13/16 FOR HAND/FOOT/MOUTH DISEASE) Immunizations Up To Date Tetanus Booster (TDap): Unknown Date of Influenza Vaccine: Mar 11, 2016 Seasonal Allergies Seasonal Allergies: No Surgeries HX Surgeries: No Respiratory Hx Respiratory Disorders: Yes Respiratory Disorders: Asthma Cardiovascular Hx Cardiac Disorders: No Neurological Hx Neurological Disorders: No Reproductive System Hx Reproductive Disorders: No Genitourinary Hx Genitourinary Disorders: No Gastrointestinal Hx Gastrointestinal Disorders: No Musculoskeletal Hx Musculoskeletal Disorders: No Endocrine Hx Endocrine Disorders: No HEENT HX ENT Disorders: No Cancer Hx Cancer: No Psychosocial Hx Psychiatric Problems: No Integumentary HX Skin/Integumentary Disorder: No Blood Transfusions Hx Blood Disorders: No Family Medical History Family Medial History: Cardiovascular disease 19 FATHER 19 MOTHER Diabetes mellitus 19 FATHER 19 MOTHER Hypertension 19 FATHER 19 MOTHER Kidney disease 19 FATHER Physical Exam Vital Signs Vital Sign - Last 12Hours 05/15/16 05/15/16 00:00 01:54 Temp 98.8 Pulse 90 Resp 20 B/P 149/81 Pulse Ox 95 O2 Delivery Room Air Capillary Refill : Less Than 3 Seconds General Appearance: No Apparent Distress WD/WN Anxious Eyes: Bilateral Eye EOMI, Bilateral Eye Normal Inspection, Bilateral Eye PERRL HEENT: PERRL/EOMI TMs Normal Other (MULTIPLE ULCERATIONS TO ENTIRE MOUTH. NO POSTERIOR PHARYNGEAL OR UVULA SWELLING. SOME CRACKING/PEELING OF LIPS. ) Neck: Full Range of Motion Normal Inspection Non Tender Supple Respiratory: Normal Breath Sounds No Accessory Muscle Use No Respiratory DistressNo Stridor Cardiovascular: Regular Rate, Rhythm No Murmur Normal Peripheral Pulses Gastrointestinal: No Organomegaly Non Tender Soft Extremity: Normal Capillary Refill Other (CONFLUENT RASH/ERYTHEMA TO PALMS AND SOLES, WITH PETECHIAE, AND PAPULES STARTING TO EXTEND TO DORSUM OF HANDS AND FINGERS AND FEET AND TOES. MILD SWELLING TO HANDS AND FINGERS AND FEET AND TOES. ) Neurologic/Psychiatric: Alert Oriented x3 No Motor/Sensory Deficits return to service inspector II- XII Norm as Tested Skin: Warm/Dry Other ( ABOVE) Progress/Results/Core Measures Results/Orders Lab Results Laboratory Tests Test 05/15/16 00:12 Range/Units Activated Partial Thromboplast Time 26 24-35 SEC Alanine Aminotransferase (ALT/SGPT) 21 0-55 U/L Albumin 4.2 3.2-4.5 G/DL Alkaline Phosphatase 82 40-136 U/L Anion Gap 14 5-14 MMOL/L Aspartate Amino Transf (AST/SGOT) 13 5-34 U/L BUN/Creatinine Ratio 24 Basophils # (Auto) 0.0 0.0-0.1 10^3/uL Basophils (%) (Auto) 0 0-10 % Blood Urea Nitrogen 16 7-18 MG/DL C-Reactive Protein High Sensitivity 2.31 H 0.00-0.50 MG/DL Calcium Level 9.8 8.5-10.1 MG/DL Carbon Dioxide Level 20 L 21-32 MMOL/L Chloride Level 104 98-107 MMOL/L Creatinine 0.68 0.60-1.30 MG/DL Eosinophils # (Auto) 0.1 0.0-0.3 10^3/uL Eosinophils (%) (Auto) 1 0-10 % Erythrocyte Sedimentation Rate 5 0-30 MM/HR Estimat Glomerular Filtration Rate > 60 Glucose Level 86 70-105 MG/DL Hematocrit 46 35-52 % Hemoglobin 15.8 11.5-16.0 G/DL INR Comment 1.0 0.8-1.4 Lymphocytes # (Auto) 4.1 H 1.0-4.0 X 10^3 Lymphocytes (%) (Auto) 39 12-44 % Mean Corpuscular Hemoglobin 28 25-34 PG Mean Corpuscular Hemoglobin Concent 35 32-36 G/DL Mean Corpuscular Volume 82 80-99 FL Mean Platelet Volume 9.9 7.4-10.4 FL Monocytes # (Auto) 0.9 0.0-1.0 X 10^3 Monocytes (%) (Auto) 8 0-12 % Neutrophils # (Auto) 5.5 1.8-7.8 X 10^3 Neutrophils (%) (Auto) 52 42-75 % Platelet Count 280 130-400 10^3/uL Potassium Level 4.0 3.6-5.0 MMOL/L Prothrombin Time 13.0 12.2-14.7 SEC Red Blood Count 5.56 4.35-5.85 10^6/uL Red Cell Distribution Width 13.8 10.0-14.5 % Sodium Level 138 135-145 MMOL/L Total Bilirubin 0.3 0.1-1.0 MG/DL Total Protein 7.3 6.4-8.2 G/DL White Blood Count 10.5 4.3-11.0 10^3/uL My Orders Orders-CARLOS RAMIREZ DO Saline Lock/Iv-Start (05/15/16 00:09) Cbc With Automated Diff (05/15/16 00:09) Comprehensive Metabolic Panel (05/15/16 00:09) Hs C Reactive Protein (05/15/16 00:09) Erythrocyte Sedimentation Rate (05/15/16 00:09) Protime With Inr (05/15/16 00:09) Partial Thromboplastin Time (05/15/16 00:09) Methylprednisolone Sod Succ (Solu-Medrol (05/15/16 00:15) Diphenhydramine Injection (Benadryl Inje (05/15/16 00:15) Famotidine Injection (Pepcid Injection) (05/15/16 00:15) Fentanyl Injection (Sublimaze Injection (05/15/16 00:09) Fentanyl Injection (Sublimaze Injection (05/15/16 01:05) Hydrocodone/Apap 5/325 Tablet (Lortab 5 (05/15/16 01:15) Hydrocodone/Apap 5/325 Tablet (Lortab 5 (05/15/16 01:45) Medications Given in ED Current Medications Medications Dose Ordered Sig/Piotr Route Start Time Stop Time Status Last Admin Dose Admin Acetaminophen/ Hydrocodone Bitart 1 tab ONCE ONCE PO 05/15/16 01:15 05/15/16 01:16 DC 05/15/16 01:09 1 TAB Acetaminophen/ Hydrocodone Bitart 1 tab ONCE ONCE PO 05/15/16 01:45 05/15/16 01:46 DC 05/15/16 01:50 1 TAB Diphenhydramine HCl 50 mg ONCE ONCE IVP 05/15/16 00:15 05/15/16 00:16 DC 05/15/16 00:24 50 MG Famotidine 40 mg ONCE ONCE IVP 05/15/16 00:15 05/15/16 00:16 DC 05/15/16 00:24 40 MG Methylprednisolone Sodium Succinate 125 mg ONCE ONCE IVP 05/15/16 00:15 05/15/16 00:16 DC 05/15/16 00:24 125 MG Vital Signs/I&O Vital Sign - Last 12Hours 05/15/16 05/15/16 00:00 01:54 Temp 98.8 Pulse 90 69 Resp 20 18 B/P 149/81 Pulse Ox 95 O2 Delivery Room Air Blood Pressure Mean: 103 Progress Note : Progress Note PAIN / BURNING AND ITCHING EASED AT DISMISSAL PT AND COMFORTABLE WITH PT GOING HOME, LONG SHE HAS RX FOR PAIN MEDICATION Departure Communication Progress Notes 0100--SPOKE WITH DR. PUGA, DOES NOT FEEL THAT PT NEEDS TO BE RE-ADMITTED. PT IS TO FOLLOW UP IN CLINIC THIS WEEK FOR FURTHER CARE. Impression Impression: Primary Impression: Hand, foot and mouth disease Disposition: HOME, SELF-CARE Condition: Improved Departure-Patient Inst. Referrals: [facility] (PCP/Family) Primary Care Physician Patient Instructions: Hand, Foot, and Mouth Disease (DC) Add. Discharge Instructions: CONTINUE PREDNISONE AND VISCOUS LIDOCAINE AND ANTIHISTAMINES PRESCRIBED LOTS OF CLEAR LIQUIDS [facility] FOR FURTHER CARE All discharge instructions reviewed with patient and/or family. Voiced understanding. Scripts Hydrocodone/Acetaminophen (Hydrocodon -Acetaminophen 5-325)1 Each Tablet1-2 Each PO Q4H #20 TAB Prov:CARLOS RAMIREZ DO 05/15/16 CARLOS RAMIREZ DO May 15, 2016 01:12
[2016-05-15] MEDS ORDERED: HYDROcodone/APAP 5 MG/325 MG (LORTAB) TAB PO ONE ×2 (01:15→01:45)
[2016-05-15] MEDS ORDERED: HYDR-3812 PO (01:19)
[2016-05-15 01:54] VITALS: BP 136/73
== END 2016-05-15 01:54 | disposition home or self-care (01) ==
LOC: EDUNIT# 23:56 → ER 23:58
DX: B08.4 Enteroviral vesicular stomatitis with exanthem (principal); F17.210 Nicotine dependence, cigarettes, uncomplicated
CPT/HCPCS: 36415; 80053; 85025; 85610; 85652; 85730; 86141; 96374; 96375; 96376